=== PATIENT | female | born 1940 | race African-American/Black ===

== ENCOUNTER → 2016-11-22 | Outpatient (CLI) | payer OTHER ==
[~2016-11-22] MED LIST: ASPI-435 PO; BRIM0.1S OPB; DORZ2SOL20 OPB; LATA0.009 OPB; LOSA50TA6 PO; LPT/40 PO
--- NOTE | 2016-11-22 11:22 | DIAGNOSTIC IMAGING REPORT ---
CAROTID ARTERY ULTRASOUND CLINICAL HISTORY: History of stroke. COMPARISON STUDY: Carotid ultrasound May 11, 2013. TECHNIQUE: Real-time, grayscale, and color Doppler sonography of the carotid and vertebral arteries was performed. Images were viewed in the transverse and longitudinal planes. FINDINGS: There is moderate atherosclerotic plaque. Velocity measurements are listed below. COMMON CAROTID PEAK SYSTOLIC VELOCITY (CM/S): RIGHT 98 LEFT 82 ICA PEAK SYSTOLIC VELOCITY (CM/S): RIGHT 98 LEFT 67 The systolic ratios between the internal to common carotid arteries are normal. Antegrade flow is seen in the vertebral arteries. The external carotid arteries are patent. Blood pressure in the right arm measured 157/80. Blood pressure in the left arm measured 150/61. Incidental note was made of a 1.1 cm left lobe thyroid nodule. This does not meet criteria for biopsy. IMPRESSION: Moderate atherosclerotic plaque without evidence of a hemodynamically significant stenosis. Electronically signed by: Tremayne Boswell M.D. 11/22/2016 11:21 AM Dictated Date/Time: 11/22/2016 11:19 AM
== END | disposition home or self-care (01) ==
LOC: C.ULTR 09:30
PROVIDERS: ATTEND Family Medicine
DX: E11.9 Type 2 diabetes mellitus without complications (principal); Z87.59 Personal history of other complications of pregnancy, childbirth and the puerperium; I25.10 Atherosclerotic heart disease of native coronary artery without angina pectoris

== ENCOUNTER → 2016-11-23 | Outpatient (CLI) | payer OTHER ==
[2016-11-23 11:13] LABS: BASO % 0.1 %; BASO ABS # 0.01 K/uL (0-0.2); COMPLETE YES; EOS % 5.2 %; HEMATOCRIT 36.5 % (37-47); IG% 0.1 %; LYMPH % 28.1 %; LYMPH ABS # 1.96 K/uL (1.2-3.4); MEAN CELL VOLUME 102.8 fL (80-100); MEAN CORPUSCULAR HEMOGLOBIN 35.5 pg (25-34); MEAN CORPUSCULAR HGB CONC 34.5 g/dl (32-36); MEAN PLATELET VOLUME 10.2 fL (7.4-10.4); MONO % 11.3 %; NEUT % 55.2 %; PLATELET COUNT 232 K/uL (130-400); RED BLOOD COUNT 3.55 M/uL (4.2-5.4); WHITE BLOOD COUNT 6.97 K/uL (4.8-10.8)
[2016-11-23 12:19] LABS: ESTIMATED AVERAGE GLUCOSE 123 mg/dl; HA1C FLAG Normal (Normal)
[2016-11-23 12:29] LABS: ALT/SGPT 38 U/L (12-78); AST/SGOT 21 U/L (15-37); BLOOD UREA NITROGEN 12 mg/dl (7-18); BUN/CREATININE RATIO 12.1 (10-20); CALCIUM 8.8 mg/dl (8.5-10.1); CARBON DIOXIDE 26 mmol/L (21-32); CHLORIDE 105 mmol/L (98-107); CREATININE 0.95 mg/dl (0.60-1.20); GLUCOSE 100 mg/dl (70-99); POTASSIUM 3.8 mmol/L (3.5-5.1); SODIUM 139 mmol/L (136-145)
[2016-11-23 12:34] LABS: ALKALINE PHOSPHATASE 66 U/L (45-117); CHOLESTEROL 152 mg/dl (0-200); CHOLESTEROL/HDL RATIO 2.5; HDL CHOLESTEROL 60 mg/dl; LDL CHOLESTEROL CALCULATED 77 mg/dl; PHOSPHORUS 2.9 mg/dl (2.5-4.9); THYROID STIMULATING HORMONE 0.985 uIu/ml (0.300-4.500); TRIGLYCERIDES 77 mg/dl (0-150); VERY LOW DENSITY LIPOPROT CALC 15 mg/dl
[2016-11-26 11:38] LABS: C-REACTIVE PROT HIGHSEN 2.5 MG/L
--- NOTE | 2017-01-29 06:10 | CODING QUERY NO DIAGNOSIS ---
TREATMENT RENDERED WITHOUT A DIAGNOSIS To promote full compliance with coding requirements relating to patient care, physician participation is requested in all cases of paster hat lining uncertainty. Please assist us with providing a diagnosis/symptom for the test(s) below: A diagnosis/symptom was not documented on your Order. A valid diagnosis/symptom is required to bill all insurances. Please remember that we are unable to code a diagnosis of rule out, probable, possible, questionable, or suspected. Tests that require a diagnosis: DOS: 11/23/16 * CMP DIAGNOSIS: * CREATINE PHOSPHOKINASE DIAGNOSIS: * LIPID PROFILE FASTING DIAGNOSIS: * PHOSPHORUS DIAGNOSIS: * T4 FREE DIAGNOSIS: * TSH DIAGNOSIS: * URIC ACID DIAGNOSIS: * HEMOGLOBIN A1C DIAGNOSIS: * CBC W/ AUTO DIFF DIAGNOSIS: * VITAMIN B12 DIAGNOSIS: * VITAMIN D, 25-HYDROXY DIAGNOSIS: * C-REACT PROT HIGHSENS (CARDIO) DIANGOSIS: Provider Signature: Date: Thank you Razia Godinez [employer] Information Management Once completed, please kindly fax back to [phone] For questions please call [phone]
== END | disposition home or self-care (01) ==
LOC: C.LAB 10:26
PROVIDERS: ATTEND Family Medicine
DX: R73.09 Other abnormal glucose (principal)

== ENCOUNTER → 2017-02-25 | Outpatient (CLI) | payer OTHER ==
--- NOTE | 2017-02-27 08:26 | MAMMOGRAPHY REPORT ---
BILATERAL DIGITAL SCREENING MAMMOGRAM TOMOSYNTHESIS WITH CAD: 02/25/2017 CLINICAL HISTORY: Asymptomatic. Personal history of breast cancer. TECHNIQUE: Breast tomosynthesis in addition to standard 2D mammography was performed. Current study was also evaluated with a Computer Aided Detection (CAD) system. COMPARISON: Comparison is made to exams dated: 02/23/2016 mammogram, 02/21/2015 mammogram, 02/18/2014 mammogram, 02/17/2013 mammogram, 02/08/2012 mammogram, and 01/26/2011 mammogram - [facility]. BREAST COMPOSITION: The tissue of both breasts is heterogeneously dense, which may obscure small ma sses. FINDINGS: There is expected architectural distortion and benign coarse calcifications at the site of prior lumpectomy in the 12:00 posterior right breast. There are are stable grouped punctate microc alcifications in the lateral left breast, unchanged dating back to at least 2009, therefore likely b enign. No suspicious mass, architectural distortion or cluster of new, suspicious microcalcificatio ns is seen. IMPRESSION: ACR BI-RADS CATEGORY 1: NEGATIVE There is no mammographic evidence of malignancy. A 1 year screening mammogram is recommended. The p atient will receive written notification of the results. Approximately 10% of breast cancers are not detected with mammography. A negative mammographic repor t should not delay biopsy if a clinically suggestive mass is present. Rebeca Jung M.D. ay/:02/26/2017 18:03:00 Chemic Mangler: Mei REYNOLDS(Aminta)(Adi)(THERON), [facility] letter sent: Normal 1/2 BI-RADS Code: ACR BI-RADS Category 1: Negative
== END | disposition home or self-care (01) ==
LOC: C.MAMM 10:55
PROVIDERS: ATTEND Family Medicine
DX: Z12.31 Encounter for screening mammogram for malignant neoplasm of breast (principal); Z85.3 Personal history of malignant neoplasm of breast

== ENCOUNTER → 2017-03-08 | Outpatient (CLI) | payer OTHER ==
[2017-03-08 12:03] LABS: BASO % 0.6 %; BASO ABS # 0.04 K/uL (0-0.2); COMPLETE YES; EOS % 8.5 %; LYMPH % 32.5 %; LYMPH ABS # 2.11 K/uL (1.2-3.4); MEAN CELL VOLUME 103.5 fL (80-100); MEAN CORPUSCULAR HEMOGLOBIN 34.9 pg (25-34); MEAN CORPUSCULAR HGB CONC 33.7 g/dl (32-36); NEUT % 46.4 %; PLATELET COUNT 219 K/uL (130-400); RED BLOOD COUNT 3.67 M/uL (4.2-5.4); WHITE BLOOD COUNT 6.49 K/uL (4.8-10.8)
[2017-03-08 12:13] LABS: ALB/GLOB RATIO 1.2 (0.9-2); ALT/SGPT 30 U/L (12-78); AST/SGOT 19 U/L (15-37); BLOOD UREA NITROGEN 17 mg/dl (7-18); BUN/CREATININE RATIO 17.1 (10-20); CALCIUM 9.1 mg/dl (8.5-10.1); CARBON DIOXIDE 29 mmol/L (21-32); CHLORIDE 107 mmol/L (98-107); CHOLESTEROL 134 mg/dl (0-200); GLUCOSE 113 mg/dl (70-99); POTASSIUM 4.1 mmol/L (3.5-5.1); SODIUM 141 mmol/L (136-145); TRIGLYCERIDES 43 mg/dl (0-150); URIC ACID 5.7 mg/dl (2.6-7.2); VERY LOW DENSITY LIPOPROT CALC 9 mg/dl
[2017-03-08 12:22] LABS: ALKALINE PHOSPHATASE 67 U/L (45-117); CHOLESTEROL/HDL RATIO 2.5; HDL CHOLESTEROL 54 mg/dl; LDL CHOLESTEROL CALCULATED 71 mg/dl; TOTAL IRON BINDING CAPACITY 334 mcg/dl (250-450)
[2017-03-08 14:11] LABS: ESTIMATED AVERAGE GLUCOSE 126 mg/dl; HA1C FLAG Normal (Normal)
== END | disposition home or self-care (01) ==
LOC: C.LAB 10:52
PROVIDERS: ATTEND Family Medicine
DX: R73.09 Other abnormal glucose (principal); E55.9 Vitamin D deficiency, unspecified; D51.9 Vitamin B12 deficiency anemia, unspecified; E78.9 Disorder of lipoprotein metabolism, unspecified; R53.83 Other fatigue; I10 Essential (primary) hypertension

== ENCOUNTER → 2018-02-26 | Outpatient (CLI) | payer OTHER ==
--- NOTE | 2018-02-26 15:47 | MAMMOGRAPHY REPORT ---
BILATERAL DIGITAL SCREENING MAMMOGRAM TOMOSYNTHESIS WITH CAD: 02/26/2018 CLINICAL HISTORY: Asymptomatic. Personal history of breast cancer. TECHNIQUE: Breast tomosynthesis in addition to standard 2D mammography was performed. Current study was also evaluated with a Computer Aided Detection (CAD) system. COMPARISON: Comparison is made to exams dated: 02/25/2017 mammogram, 02/23/2016 mammogram, 02/21/2015 ma mmogram, 02/18/2014 mammogram, 02/17/2013 mammogram, and 02/08/2012 mammogram - [facility]ter. BREAST COMPOSITION: The tissue of both breasts is heterogeneously dense, which may obscure small mas ses. FINDINGS: No suspicious masses, calcifications, or areas of architectural distortion are noted in ei ther breast. There has been no significant interval change compared to prior exams. There are stable post surgical changes in the right upper outer quadrant from prior lumpectomy. Bilateral benign-heather earing calcifications are not significantly changed. IMPRESSION: ACR BI-RADS CATEGORY 2: BENIGN There is no mammographic evidence of malignancy. A 1 year screening mammogram is recommended. The pa tient will receive written notification of the results. Approximately 10% of breast cancers are not detected with mammography. A negative mammographic report should not delay biopsy if a clinically suggestive mass is present. Alina Davalos M.D. /:02/26/2018 12:04:45 Architectural Model Maker: Ruby Lugo [facility] letter sent: Normal 1/2 BI-RADS Code: ACR BI-RADS Category 2: Benign
== END | disposition home or self-care (01) ==
LOC: C.MAMM 11:26
PROVIDERS: ATTEND Family Medicine
DX: Z12.31 Encounter for screening mammogram for malignant neoplasm of breast (principal); Z85.3 Personal history of malignant neoplasm of breast

== ENCOUNTER → 2018-03-05 | Outpatient (CLI) | payer OTHER ==
[2018-03-05 13:01] LABS: BASO % 0.7 %; BASO ABS # 0.04 K/uL (0-0.2); EOS % 6.7 %; EOS ABS # 0.39 K/uL (0-0.5); HEMATOCRIT 36.2 % (37-47); HEMOGLOBIN 12.4 g/dL (12.0-16.0); IG# 0.01 K/uL (0.00-0.02); LYMPH % 34.2 %; LYMPH ABS # 1.99 K/uL (1.2-3.4); MEAN CELL VOLUME 100.8 fL (80-100); MEAN CORPUSCULAR HEMOGLOBIN 34.5 pg (25-34); MEAN CORPUSCULAR HGB CONC 34.3 g/dl (32-36); MEAN PLATELET VOLUME 9.9 fL (7.4-10.4); MONO % 10.7 %; MONO ABS # 0.62 K/uL (0.11-0.59); NEUT % 47.5 %; NEUT ABS # 2.77 K/uL (1.4-6.5); PLATELET COUNT 237 K/uL (130-400); RED CELL DISTRIBUTION WIDTH CV 12.4 % (11.5-14.5); RED CELL DISTRIBUTION WIDTH SD 45.8 fL (36.4-46.3); WHITE BLOOD COUNT 5.82 K/uL (4.8-10.8)
[2018-03-05 13:23] LABS: ALBUMIN 3.7 gm/dl (3.4-5.0); ALT/SGPT 31 U/L (12-78); AST/SGOT 19 U/L (15-37); BLOOD UREA NITROGEN 7 mg/dl (7-18); CALCIUM 8.8 mg/dl (8.5-10.1); CARBON DIOXIDE 29 mmol/L (21-32); CHOLESTEROL 132 mg/dl (0-200); CREATININE 0.95 mg/dl (0.60-1.20); GLUCOSE 94 mg/dl (70-99); POTASSIUM 3.3 mmol/L (3.5-5.1); SODIUM 140 mmol/L (136-145); URIC ACID 4.2 mg/dl (2.6-7.2)
[2018-03-05 13:32] LABS: ALKALINE PHOSPHATASE 76 U/L (45-117); LDL CHOLESTEROL CALCULATED 65 mg/dl; TOTAL PROTEIN 7.5 gm/dl (6.4-8.2); TRANSFERRIN 269 mg/dl (200-360)
== END | disposition home or self-care (01) ==
LOC: C.LAB 11:57
PROVIDERS: ATTEND Family Medicine
DX: R73.09 Other abnormal glucose (principal); E55.9 Vitamin D deficiency, unspecified; D51.9 Vitamin B12 deficiency anemia, unspecified; E78.9 Disorder of lipoprotein metabolism, unspecified; R53.83 Other fatigue

== ENCOUNTER → 2018-06-11 | Outpatient (CLI) | payer OTHER ==
[2018-06-11 12:59] LABS: BASO % 0.5 %; BASO ABS # 0.03 K/uL (0-0.2); EOS % 7.3 %; EOS ABS # 0.45 K/uL (0-0.5); HEMATOCRIT 37.4 % (37-47); HEMOGLOBIN 12.4 g/dL (12.0-16.0); LYMPH % 28.7 %; LYMPH ABS # 1.77 K/uL (1.2-3.4); MEAN CELL VOLUME 101.9 fL (80-100); MEAN CORPUSCULAR HEMOGLOBIN 33.8 pg (25-34); MEAN CORPUSCULAR HGB CONC 33.2 g/dl (32-36); MEAN PLATELET VOLUME 10.7 fL (7.4-10.4); MONO % 8.8 %; MONO ABS # 0.54 K/uL (0.11-0.59); NEUT % 54.7 %; NEUT ABS # 3.37 K/uL (1.4-6.5); PLATELET COUNT 224 K/uL (130-400); RED CELL DISTRIBUTION WIDTH CV 12.5 % (11.5-14.5); RED CELL DISTRIBUTION WIDTH SD 46.1 fL (36.4-46.3); WHITE BLOOD COUNT 6.16 K/uL (4.8-10.8)
[2018-06-11 13:49] LABS: ALBUMIN 3.8 gm/dl (3.4-5.0); ALKALINE PHOSPHATASE 66 U/L (45-117); ALT/SGPT 30 U/L (12-78); AST/SGOT 23 U/L (15-37); BLOOD UREA NITROGEN 13 mg/dl (7-18); CARBON DIOXIDE 26 mmol/L (21-32); CHOLESTEROL 125 mg/dl (0-200); CREATININE 0.96 mg/dl (0.60-1.20); GLUCOSE 113 mg/dl (70-99); LDL CHOLESTEROL CALCULATED 65 mg/dl; POTASSIUM 3.6 mmol/L (3.5-5.1); SODIUM 139 mmol/L (136-145); TOTAL PROTEIN 7.4 gm/dl (6.4-8.2); TRANSFERRIN 243 mg/dl (200-360); URIC ACID 4.8 mg/dl (2.6-7.2)
== END | disposition home or self-care (01) ==
LOC: C.LAB 10:44
PROVIDERS: ATTEND Family Medicine
DX: R73.03 Prediabetes (principal); E55.9 Vitamin D deficiency, unspecified; D51.9 Vitamin B12 deficiency anemia, unspecified; E78.9 Disorder of lipoprotein metabolism, unspecified; R53.83 Other fatigue

== ENCOUNTER 2022-12-19 06:15 | Observation (INO) ==
--- NOTE | 2022-12-05 12:36 | Anesthesiology Consultation ---
Date of Service December 05, 2022 Assessment & Plan (1) Encounter for pre-operative examination: Chart Review Chart Review: Acceptable Risk for Surgery and Patient NOT seen in Pre Admission Testing Consults Requested none History Surgery Operation Date: 12/19/22 07:00 Proposed Procedures p Bilateral Breast Mastectomy, Right [place] Lymph Node Biopsy - Andrew Del Valle DO, FACS Height/Weight Height: 5 ft 6 in Weight: 71.214 kg Allergies Allergy/AdvReac Type Severity Reaction Status Date / Time aspirin AdvReac Gastrointestinal Verified 12/05/22 09:42 Upset Medications Home Medications Medication Instructions Recorded Confirmed Last Taken atorvastatin 10 mg tablet 10 mg PO HS 07/31/21 12/05/22 07/30/21 brimonidine 0.1 % eye drops 1 drp OPB BID 07/31/21 12/05/22 07/31/21 (Alphagan P) latanoprost 0.005 % eye drops 1 drp OPB HS 07/31/21 12/05/22 07/30/21 omega 5-bpg-yhw-fish oil 1,000 mg 1 cap PO QAM 07/31/21 12/05/22 07/31/21 (120 mg-180 mg) capsule (Fish Oil) vit C,E,zinc,copper-vbbuo0h 250 1 cap PO QAM 07/31/21 12/05/22 07/31/21 mg-lutein 5 mg-zeaxanthin 1 mg capsule (Ocuvite Adult 50 Plus) vitamin E 670 mg (1,000 unit) 1,000 unit PO QAM 07/31/21 12/05/22 07/31/21 capsule dorzolamide 1 drp ophthalmic (eye) BID 10/25/21 12/05/22 Unknown cholecalciferol (vitamin D3) 50 50 mcg PO QAM 09/17/22 12/05/22 Unknown mcg (2,000 unit) capsule gabapentin 100 mg capsule 100 mg PO HS #90 caps 09/18/22 12/05/22 Unknown vitamin K2 100 mcg capsule 100 mcg PO QAM 10/04/22 12/05/22 Unknown multivitamin 1 tab PO QAM 11/13/22 12/05/22 Unknown vitamin A 3,000 mcg (10,000 unit) 10,000 unit PO QAM 11/13/22 12/05/22 Unknown capsule vitamin A-vitamin C-vit E-min 1 tab PO QAM 12/03/22 12/05/22 Unknown tablet clopidogrel 75 mg tablet 75 mg PO QAM 12/05/22 12/05/22 Unknown hydrochlorothiazide 25 mg tablet 12.5 mg PO QAM 12/05/22 12/05/22 Unknown losartan 100 mg tablet 100 mg PO QAM 12/05/22 12/05/22 Unknown Past Medical History Medical History Breast cancer, right breast 2001. surgery, chemo, radiation. Ductal carcinoma in situ (DCIS) of right breast Glaucoma History of CVA (cerebrovascular accident) 2014 - no residual HLD (hyperlipidemia) HTN (hypertension) Sinus bradycardia Past Family History Family History Aunt Breast cancer Paternal aunt Ovarian cancer Father , 68yo Prostate cancer Mother , 89yo Natural with unknown cause Hypertension Sister No problems noted. Brother No problems noted. Brother No problems noted. Daughter No problems noted. Daughter No problems noted. Daughter No problems noted. Denies family history of Diabetes Kidney disease Myocardial infarction Lung cancer Colorectal cancer Past Surgical History Surgical History H/O colonoscopy H/O left breast biopsy 10/31/2022 - negative for malignancy History of cataract surgery Bilateral History of lumpectomy of right breast 2001 in [place] History of right breast biopsy History of wisdom tooth extraction Social History Smoking Status: Former smoker Smoking cigarettes per day: 1 PPD x 30 yrs Do You Dip or Chew Tobacco: No Smoking End Date: quit Hx Alcohol Use: No Hx Substance Use: No substance use type: does not use Lab Results Anesthesia Preop Results Results Anesthesia Widget: WBC 6.00 K/ul (4.8-10.8) 11/07/22 Hgb 12.1 g/dl (12.0-16.0) 11/07/22 Hct 37.0 % (34.1-44.9) 11/07/22 Plt 206 K/uL (130-400) 11/07/22 Na 137 mmol/L (136-145) 11/07/22 K 3.7 mmol/L (3.5-5.1) 11/07/22 Cl 106 mmol/L (98-107) 11/07/22 CO2 21 mmol/L (21-32) 11/07/22 BUN 13 mg/dl (6-23) 11/07/22 Creat 0.87 mg/dl (0.6-1.2) 11/07/22 Glucose Level 81 mg/dl (70-99(Fasting)) 11/07/22 Testing Electrocardiogram Date: 11/15/22 SB with 1st degree AV block with occasional PACs, rate 52 bpm Chest X-Ray Date: 11/20/22 IMPRESSION: Atelectasis versus scarring versus trace pleural effusion on the right. Lungs are otherwise clear.
[~2022-12-19 06:15] MED LIST changes: -ASPI-435 PO; -BRIM0.1S OPB; -DORZ2SOL20 OPB; -LATA0.009 OPB; -LOSA50TA6 PO; -LPT/40 PO; +LR 15ML/HR IV SCH; +ceFAZolin 2000MG 2,000 MG/15 ML SYR IV SCH
[2022-12-19] MEDS ORDERED: fentaNYL citrate 100 MCG/2 ML VIAL ONE ×2 (08:39→10:56)
[2022-12-19] MEDS ORDERED: LIDOCAINE 2% MPF LOCAL 5 ML VIAL INFIL ONE (08:40)
[2022-12-19] MEDS ORDERED: PROPOFOL IV EMULSION 10 MG/ML 20 ML VIAL IV ONE (08:40)
[2022-12-19] MEDS ORDERED: BUPIVACAINE 0.5 % 5 MG/1 ML PF 10ML VIAL ONE (09:24)
[2022-12-19] MEDS ORDERED: ONDANSETRON INJ 2 MG/ML 2 ML VIAL IV PRN ×2 (09:54→15:57)
[2022-12-19] MEDS ORDERED: ePHEDrine sulfate 50 MG/ML AMP IV PRN (09:54)
[2022-12-19] MEDS ORDERED: ATROPINE SULFATE 0.1 MG/ML 10ML SYR IV PRN (09:54)
[2022-12-19] MEDS ORDERED: PROMETHAZINE HCL 6.25 MG in SODIUM CHLORIDE 0.9% 50 ML IV PRN (09:54)
--- NOTE | 2022-12-19 09:59 | History & Physical Bridge Note ---
Date of Service December 19, 2022 History & Physical Bridge Note I have examined the patient, reviewed the History & Physical and in the interval since the performance of the History & Physical I have noted the following changes of clinical significance: no changes noted sentinel node injection performed, lymphoscintigraphy confirmed uptake into right axilla.
[2022-12-19] MEDS ORDERED: ISOSULFAN BLUE 10 MG/ML VIAL 5 ML ONE (10:14)
[2022-12-19] MEDS ORDERED: BUPIVACAINE 0.5 % 5 MG/1 ML MPF 30ML VIAL ONE (10:14)
[2022-12-19] MEDS ORDERED: DEXAMETHASONE SOD INJ 4 MG/ML VIAL ONE ×2 (10:47)
[2022-12-19] MEDS ORDERED: ONDANSETRON INJ 2 MG/ML 2 ML VIAL ONE (10:47)
--- NOTE | 2022-12-19 10:52 | Nuclear Medicine Report ---
LYMPHOSCINTIGRAPHY HISTORY: Right breast cancer. RADIOTRACER: 25 mCi of lymphoseek. Study/Images: static anterior and lateral. PROCEDURE: Using standard sterile technique, four intradermal and one deep injections of radiotracer were placed in the right periareolar breast. The patient tolerated the procedure well without any complications. FINDINGS: Tracer localization was demonstrated at the injection site. In addition, focal tracer uptake in the r ight axilla was demonstrated and marked cutaneously. IMPRESSION: Lymphoscintigraphy was performed and a right axillary sentinel lymph node localized and marked for bi opsy. ACT 112: Negative or not required by law. Electronically signed by: Tc August M.D. 12/19/2022 10:51 AM
--- NOTE | 2022-12-19 12:51 | Operative Report ---
PG Post Operative Report Pre & Post Diagnosis Operation Date: 12/19/22 10:00 Pre-Op Diagnosis: Right Breast Ductal Carcinoma In Situ, high-grade with comedonecrosis, history of prior right breast cancer, left breast ADH Post-Op Diagnosis: Right Breast Ductal Carcinoma In Situ, high-grade with comedonecrosis, history of prior right breast cancer, left breast ADH I identified the patient and participated in the time-out.: Yes Procedure Operation Date: 12/19/22 10:00 Actual Procedures p Bilateral Breast Mastectomy, Right [place] Lymph Node Biopsy(Bilateral) - Andrew Del Valle DO, FACS Surgeon Andrew Del Valle DO, FACS Seed Cleaner Gin Ordoñez DO; Shelby Nelson Estimated Blood Loss 40 Findings Consistent with Post-Op Diagnosis Contralateral prophylactic left mastectomy performed, mammogram confirmed clips in specimen. Right simple mastectomy performed, mammogram confirmed clip in specimen. Right axillary sentinel lymph node biopsy performed, single lymph node measured 473 ex vivo, remainder of axilla silent. 10 Japanese RAVINDRA drains left bilaterally. Specimens Left breast mastectomy Right breast mastectomy Right axilla sentinel lymph node Drains 10 Japanese flat RAVINDRA drain in surgical bed bilaterally Anesthesia Type General Complications none Disposition Accompanied Patient To Recovery: No Disposition: Recovery Room Indications 82-year-old female with remote history of right breast cancer with recent diagnosis of high-grade DCIS with comedonecrosis of the right breast and left breast ADH. After discussion about her options, patient elected for bilateral mastectomy with right axillary sentinel lymph node biopsy. The risks of the procedure were discussed, all questions were answered, and the patient agreed to proceed with surgery as planned. Description of Procedure Patient had sentinel lymph node injection performed prior to the procedure, lymphoscintigraphy was performed and nuclear medicine confirmed uptake into the right axilla. The right axilla was examined prior to the procedure and confirmed uptake into the right axilla. The patient was properly identified, consented, and taken to the operating room where she was placed in the supine position. Bilateral pectoralis blocks were performed by anesthesia with Exparel prior to the procedure. General endotracheal anesthesia was induced. SCDs and a safety belt were placed. Preoperative antibiotics were administered. The patient's bilateral chest was prepped and draped in the standard sterile fashion. Surgical timeout was performed and all parties were in agreement that this was the correct patient and procedure to be performed and we continued as planned. We began by performing the prophylactic mastectomy on the left. A transversely oriented elliptical incision was made that encompassed the nipple-arreolar complex on the left. Flaps were raised to the clavicle superiorly, the sternum medially, and the rectus sheath inferiorly. Care was taken to leave a few millimeters of fat under the skin to maintain good perfusion to the flaps. The breast was then taken off the chest wall including the pectoralis fascia from medial to lateral. We then continued the dissection along the lateral border of the pectoralis muscle and along the axillary tail of Lozano, and this was amputated. The specimen was oriented and labeled left breast mastectomy. A postoperative mammogram was performed of the specimen and revealed a clip within the x-ray. The wound was irrigated and hemostasis achieved. A 10 Japanese RAVINDRA drain was placed in the surgical bed and exited inferior to the incision. This was secured in place with a 2-0 nylon suture. The skin was then closed with i nterrupted 3-0 Vicryl deep dermal sutures followed by running 4-0 Monocryl subcuticular suture. We then turned our attention to the right breast. Transversely oriented elliptical incision was made and encompassed the nipple areolar complex on the right. This was made to encompass the prior scar from her old right breast excision. Flaps were raised to the clavicle superiorly, the sternum medially and the rectus sheath inferiorly. Care was taken to leave a few millimeters of fat under the skin to maintain good perfusion of the flaps. During this portion of the procedure I turned my attention to the sentinel node. The clavipectoral fascia was incised. The gamma probe was used to localize the sentinel lymph node which read 473 ex vivo. The axilla was explored with the gamma probe and was silent. The breast was then taken off the chest wall including the pectoralis fascia from medial to lateral. We then continued the dissection along the lateral border of the pectoralis muscle and along the axillary tail of Lozano, and this was amputated. The specimen was oriented and labeled right breast mastectomy. Postoperative mammogram was performed of the specimen and revealed a clip within the x-ray. The wound was irrigated and hemostasis achieved. A 10 Japanese RAVINDRA drain was placed in the surgical bed and exited inferior to the incision. This was secured in place with a 2-0 nylon suture. The skin was then closed with interrupted 3-0 Vicryl deep dermal sutures followed by running 4-0 Monocryl subcuticular suture. Dermabond was placed over both incisions. Drain sponges were then placed. After the Dermabond had dried, fluffed gauze, ABDs, and an Venkat wrap were placed around the chest. The patient was extubated in the operating room and taken to the PACU where she recovered without apparent incident. All sponge, instrument and needle counts were correct at the conclusion of the procedure. The patient tolerated the procedure well. Dr. Ordoñez served as the speech therapy assistant on this case and performed the majority of the left mastectomy. Shelby Nelson, the physician's multimedia production assistant was present and scrubbed for the entirety of the procedure and she was critical in positioning the patient, prepping and draping, retraction and exposure, assistance in performance of the mastectomies, closure of the incisions, and placement of the dressings. I attest to the content of the Intraoperative Record and any orders documented therein. Any exceptions are noted below.
[2022-12-19] MEDS: fentaNYL citrate 100 MCG/2 ML VIAL IV PRN ×3 (13:08→13:18)
--- NOTE | 2022-12-19 14:18 | Anesthesiology Progress Note ---
Date of Service December 19, 2022 Anesthesia Post Procedure Vital Signs Vital Signs: Temp Pulse Pulse Resp BP Pulse Ox O2 Del Method 12/19/22 14:00 36.5 C 41 L 12 189/60 H 100 Nasal Cannula 12/19/22 13:10 47 L 17 110/79 98 Oxymask 12/19/22 13:50 40 L 17 185/64 H 100 Nasal Cannula 12/19/22 13:40 35 L 12 165/59 H 100 Nasal Cannula 12/19/22 13:30 39 L 14 111/55 L 100 Nasal Cannula 12/19/22 13:20 38 L 17 122/54 L 95 Oxymask 12/19/22 13:00 42 L 17 134/51 L 100 Oxymask 12/19/22 12:50 36.3 C L 44 L 19 198/69 H 99 Oxymask 12/19/22 06:51 36.9 C 61 16 203/80 H 99 Room Air O2 Flow Rate 12/19/22 14:00 2 12/19/22 13:10 10 12/19/22 13:50 2 12/19/22 13:40 2 12/19/22 13:30 4 12/19/22 13:20 4 12/19/22 13:00 10 12/19/22 12:50 10 12/19/22 06:51 Pain Intensity Bilateral Breast: Pain Intensity: 2 Transfer of Care Handoff Completed per policy Notes Mental Status: alert / awake / arousable Patient Amnestic to Procedure: Yes Nausea / Vomiting: adequately controlled Pain: adequately controlled Airway Patency, RR, SpO2: stable & adequate BP & HR: stable & adequate Hydration State: stable & adequate Anesthetic Complications: no major complications apparent Notes: patient maintaining baseline preop bradycardia with htn. she remains very close to her preoperative vital signs
[2022-12-19] MEDS ORDERED: MoRPHine SULFATE 2 MG/ML CARP IV PRN (15:57)
[2022-12-19] MEDS ORDERED: LACTATED RINGER'S 1,000 ML IV SCH (15:57)
[2022-12-19] MEDS ORDERED: oxyCODONE HCL IR 5 MG TAB (IMMEDIATE RELEASE) PO PRN (15:57)
[2022-12-19] MEDS ORDERED: MoRPHine SULFATE 4 MG/ML 1 ML CARP\\VIAL IV PRN (15:57)
--- NOTE | 2022-12-19 16:18 | Mammography Report ---
SPECIMEN RIGHT BREAST: 12/19/2022 CLINICAL HISTORY: Status post right mastectomy. COMPARISON: Comparison is made to exams dated: 08/30/2022 stereotactic biopsy, 08/30/2022 mammogram, 1 mammogram, 12/19/2022 specimen, 10/31/2022 ultrasound, and 10/31/2022 ultrasound biopsy - [facility]. Findings: A radiograph was performed of the right mastectomy specimen. The hourglass shaped biopsy c lip is noted within the mastectomy specimen. Postsurgical changes including dystrophic calcification s are also noted. Results were relayed to the operating room over the telephone. IMPRESSION: SPECIMEN The right mastectomy specimen contains the hourglass shaped biopsy clip. Alina Davalos M.D. /:12/19/2022 12:03:19 Gallery Or Museum Guide: OR Technologist, [facility]
--- NOTE | 2022-12-19 16:18 | Mammography Report ---
SPECIMEN LEFT BREAST: 12/19/2022 CLINICAL HISTORY: Status post left mastectomy. COMPARISON: Comparison is made to exams dated: 10/31/2022 ultrasound biopsy, 10/31/2022 ultrasound, and 10/31/2022 mammogram - [facility]. Findings: A radiograph was performed of the left mastectomy specimen. The ribbon shaped biopsy clip is present within the specimen. Results were relayed to the operating room over the telephone. IMPRESSION: SPECIMEN The left mastectomy specimen contains the ribbon shaped biopsy clip. Alina Davalos M.D. ah/:12/19/2022 12:01:48 Home Health Billing Specialist: OR Technologist, [facility]
[2022-12-19] MEDS: oxyCODONE HCL IR 5 MG TAB (IMMEDIATE RELEASE) PO PRN (16:51)
--- NOTE | 2022-12-19 17:49 | Hospitalist Consultation ---
Date of Consultation December 19, 2022 Assessment & Plan (1) S/P mastectomy, bilateral: -Perioperative abx, DVT PPX, pain control per the primary team -The patient is currently afebrile, stable on RA and Hypertensive at 180/65 but asymptomatic -Patient was able to eat and drink without issue post-op, will stop her IV fluids at this time -Her post-op hypertension is likely due to not taking her Losartan and HCTZ this am prior to arrival to the hospital -Will give her her Losartan now but hold her HCTZ until tomorrow to ensure her electrolytes and renal function are stable -Agree with AM CBC and BMP tomorrow morning -We will continue to follow, please reach out with any questions or concerns (2) Hypertension: -Will give Losartan now as she missed her am dose -Hold HCTZ until tomorrow after review of her labs -Continue to monitor (3) Acute right CHERRY PICKER OPERATOR stroke: -Stable -Plavix has been on hold for 1 week as per instructions from her PCP -Will need to restart once the primary team is comfortable with her bleeding risk (4) Sinus bradycardia: -Stable and asymptomatic -Was taking off of her beat kat previously -Continue to monitor (5) Hyperlipidemia: -Continue statin (6) Glaucoma: -Conitnue eye drops Plan The patient was discussed with Dr. Mendes at the time of the consult History of Present Illness Reason for Consultation: Hypertension, post-op medical management Requesting Physician: Andrew Del Valle DO, FACS Attending Physician: Dr. Reno Mendes History of Present Illness Vanessa is an 82 year old female with a PMH significant for right breast high-grade DCIS with comedonecrosis, ER positive, NV positive, asymptomatic sinu bradycardia, right CHERRY PICKER OPERATOR stroke, HTN, hyperlipidemia, RLS, glaucoma, and anemia who presented to the [facility] on 12/19/22 for Bilateral Breast Mastectomy, Right [place] Lymph Node Biopsy with Dr. Del Valle. Per the post-op report, there were no reported intraoperative complications, EBL was listed at 40 cc, and anesthesia was listed as "general". Per review of her vitals since arrival to the Hospital today she has been noted to be afebrile, hypertensive with her highest BP being 200/59 prior to the consult, and stable on RA. At the time of the exam the patient was resting comfortably in bed in no acute distress with her daughters standing bedside. She is doing well overall after her procedure, she is still in some pain but recently received oxycodone which is starting to help. Her BP at the time of my exam is 180/65, the patient currently denies headache, changes in vision, hearing, taste, and smell, SOB, chest pain other than at her surgical sites, abdominal pain, nausea, vomiting, dysuria, and LE swelling. She was able to eat dinner without issue prior to my arrival. She confirms that she did not take her AM doses of Losartan and HCTZ this morning. Please refer to Dr. Mendes's attetsation for any changes to the treatment plan Allergies Allergy/AdvReac Type Severity Reaction Status Date / Time aspirin AdvReac Gastrointestinal Verified 12/19/22 06:46 Upset Home Medications Medication Instructions Recorded Confirmed Type atorvastatin 10 mg tablet 10 mg PO HS 07/31/21 12/19/22 History brimonidine 0.1 % eye drops 1 drp OPB BID 07/31/21 12/19/22 History (Alphagan P) latanoprost 0.005 % eye drops 1 drp OPB HS 07/31/21 12/19/22 History omega 6-mjh-cgs-fish oil 1,000 mg 1 cap PO QAM 07/31/21 12/19/22 History (120 mg-180 mg) capsule (Fish Oil) vit C,E,zinc,copper-jkzzt0z 250 1 cap PO QAM 07/31/21 12/19/22 History mg-lutein 5 mg-zeaxanthin 1 mg capsule (Ocuvite Adult 50 Plus) vitamin E 670 mg (1,000 unit) 1,000 unit PO QAM 07/31/21 12/19/22 History capsule dorzolamide 1 drp ophthalmic (eye) BID 10/25/21 12/19/22 History cholecalciferol (vitamin D3) 50 50 mcg PO QAM 09/17/22 12/19/22 History mcg (2,000 unit) capsule gabapentin 100 mg capsule 100 mg PO HS #90 caps 09/18/22 12/19/22 Rx vitamin K2 100 mcg capsule 100 mcg PO QAM 10/04/22 12/19/22 History multivitamin 1 tab PO QAM 11/13/22 12/19/22 History vitamin A 3,000 mcg (10,000 unit) 10,000 unit PO QAM 11/13/22 12/19/22 History capsule vitamin A-vitamin C-vit E-min 1 tab PO QAM 12/03/22 12/19/22 History tablet clopidogrel 75 mg tablet 75 mg PO QAM 12/05/22 12/19/22 History hydrochlorothiazide 25 mg tablet 12.5 mg PO QAM 12/05/22 12/19/22 History losartan 100 mg tablet 100 mg PO QAM 12/05/22 12/19/22 History Patient History Medical History Breast cancer, right breast 2001. surgery, chemo, radiation. Ductal carcinoma in situ (DCIS) of right breast Glaucoma History of CVA (cerebrovascular accident) 2014 - no residual HLD (hyperlipidemia) HTN (hypertension) Sinus bradycardia Surgical History H/O colonoscopy H/O left breast biopsy 10/31/2022 - negative for malignancy History of cataract surgery Bilateral History of lumpectomy of right breast 2001 in [place] History of right breast biopsy History of wisdom tooth extraction Family History Aunt Breast cancer Paternal aunt Ovarian cancer Father , 68yo Prostate cancer Mother , 89yo Natural with unknown cause Hypertension Sister No problems noted. Brother No problems noted. Brother No problems noted. Daughter No problems noted. Daughter No problems noted. Daughter No problems noted. Denies family history of Diabetes Kidney disease Myocardial infarction Lung cancer Colorectal cancer Social History Smoking Status: Former smoker Tobacco Type: Cigarettes Age Quit Using Tobacco: 48; packs per day: 1; Cigarettes Per Day: 1 PPD x 30 yrs; Smoking End Date: quit ; Second Hand Exposure: No; Do You Dip or Chew Tobacco: No; Tobacco Cessation Education Requested by Patient: No Hx Alcohol Use: No Hx Substance Use: No Preferred Language: Japanese Communication Ability: Effective Visual Impairment: Limited Hearing Ability: Normal Level Vial Inspector Required: No Beliefs That Will Affect Care: None and Jew Jew Beliefs: Zoroastrian marital status: / Current Living Situation: Alone current occupational status: retired How many Children do You have: 3 Feels Safe at Home: Yes Safety Concerns: Feels Safe At This Time Childhood Exposure to Second-Hand Smoke: No Diet Comment: only meat consumed is chicken and fish caffeine: Yes (1 cup aday) during the past year weight has: remained stable Dental Care, Regularly: Yes Physical Activity Frequency: Does not Exercise Seatbelt Use: always Sunscreen Use: No Assistive Devices: Denture - Upper and Glasses Review of Systems Review of Systems: Denies current fever, chills, headache, changes in vision, hearing, taste, and smell, new chest pain, SOB, cough, abdominal pain, nausea, vomiting, diarrhea, hematemesis, melena, dysuria, hematuria, and recent falls. All systems have been reviewed and are otherwise negative. Physical Exam Physical Exam: Physical Exam: General: In no acute distress, stated age, well-nourished, good hygiene, non- toxic appearing HEENT: Normocephalic, atraumatic, no scleral icterus, pupils around round, symmetrical, and reactive to light, moist mucus membranes, trachea midline, no thyromegaly Chest/Pulm: No respiratory distress, symmetrical chest expansion, clear breath sounds throughout Cardiac: Bradycardic rate, regular rhythm,, no murmurs noted Abdomen: Negative for ascites and bruising, normoactive bowel sounds, soft, non-tender to palpation throughout Musculoskeletal: Patient with wraps on the current surgical sites and drain in place, no signs of drainage on inspection of the bandages, Extremities: Radial, dorsalis pedis, and posterior tibial pulses are intact and symmetrical, no edema noted in the BL LE's Skin: Warm, dry, no rashes , lesions, or scars noted Neuro: Alert and oriented to person, place, month, year, and president, no focal defects, CN II-XII tested and intact, no tremors noted Psych: No acute distress, calm and cooperative during the exam Results & Data Results & Data ([facility]) Vital Signs (Past 12 Hours) Vital Signs Temp Pulse Pulse Resp BP Pulse Ox O2 Del Method 12/19/22 16:27 53 L 16 180/65 H 96 Room Air 12/19/22 15:57 36.7 C 47 L 16 191/47 H 98 Room Air 12/19/22 15:30 40 L 18 176/58 H 98 Room Air 12/19/22 15:00 41 L 14 184/54 H 97 Room Air 12/19/22 14:45 42 L 11 L 177/57 H 97 Room Air 12/19/22 14:30 41 L 16 197/54 H 100 Nasal Cannula 12/19/22 14:15 48 L 19 200/59 H 100 Nasal Cannula 12/19/22 14:00 36.5 C 41 L 12 189/60 H 100 Nasal Cannula 12/19/22 13:10 47 L 17 110/79 98 Oxymask 12/19/22 13:50 40 L 17 185/64 H 100 Nasal Cannula 12/19/22 13:40 35 L 12 165/59 H 100 Nasal Cannula 12/19/22 13:30 39 L 14 111/55 L 100 Nasal Cannula 12/19/22 13:20 38 L 17 122/54 L 95 Oxymask 12/19/22 13:00 42 L 17 134/51 L 100 Oxymask 12/19/22 12:50 36.3 C L 44 L 19 198/69 H 99 Oxymask 12/19/22 06:51 36.9 C 61 16 203/80 H 99 Room Air O2 Flow Rate 12/19/22 16:27 12/19/22 15:57 12/19/22 15:30 12/19/22 15:00 12/19/22 14:45 12/19/22 14:30 2 12/19/22 14:15 2 12/19/22 14:00 2 12/19/22 13:10 10 12/19/22 13:50 2 12/19/22 13:40 2 12/19/22 13:30 4 12/19/22 13:20 4 12/19/22 13:00 10 12/19/22 12:50 10 12/19/22 06:51 Diagnostic Findings [place] Node [facility] Nuclear Med 12/19/22 08:00 LYMPHOSCINTIGRAPHY HISTORY: Right breast cancer. RADIOTRACER: 25 mCi of lymphoseek. Study/Images: static anterior and lateral. PROCEDURE: Using standard sterile technique, four intradermal and one deep injections of radiotracer were placed in the right periareolar breast. The patient tolerated the procedure well without any complications. FINDINGS: Tracer localization was demonstrated at the injection site. In addition, focal tracer uptake in the right axilla was demonstrated and marked cutaneously. IMPRESSION: Lymphoscintigraphy was performed and a right axillary sentinel lymph node localized and marked for biopsy. ACT 112: Negative or not required by law. Electronically signed by: Tc August M.D. 12/19/2022 10:51 AM ECG Additional Comments: No ECG available at the time of the consult PG Care Time/CCT Total # of Minutes Spent Total Time Spent with Patient: Total time spent is greater than 50% in coordination of care (as documented) at patient's floor/unit and/or counseling patient: Coding Level of Care Code Established Pt INP/OBS CONSULT LVL 4, 60 MIN Patient Type Established History Comprehensive Exam Comprehensive Medical Decision Making High Complexity Diagnoses S/P mastectomy, bilateral Z90.13 Hypertension I10 Hypertension type: primary hypertension Acute right CHERRY PICKER OPERATOR stroke I63.531 Sinus bradycardia R00.1 Hyperlipidemia E78.5 Glaucoma H40.9 (2) Hypertension Hypertension type: primary hypertension Qualified Code(s): I10 - Essential (primary) hypertension
[2022-12-19] MEDS: LOSARTAN POTASSIUM 50 MG TAB PO SCH (18:28)
[2022-12-19] MEDS ORDERED: ACETAMINOPHEN 325 MG TAB PO PRN (19:53)
[2022-12-19] MEDS ORDERED: LATANOPROST 0.005% OP SOLN 2.5 ML BTL OPB SCH (21:00)
[2022-12-19] MEDS ORDERED: ATORVASTATIN 10 MG TAB PO SCH (21:00)
[2022-12-19] MEDS ORDERED: GABAPENTIN 100 MG CAP PO SCH (21:00)
[2022-12-19] MEDS: DORZOLAMIDE HCL 2% OPH SOLN 10 ML BTL OP SCH (21:59)
[2022-12-20 07:00] LABS: BUN Creatinine Ratio 17.3 (10-20); Calcium 9.1 mg/dl (8.5-10.1); Creatinine Clr Calc Pharmacy 38.4 ml/min; Est GFR (African American) 57.5 ml/min; Est GFR (Non-African American) 49.6 ml/min; Potassium 4.2 mmol/L (3.5-5.1)
[2022-12-20 07:06] LABS: Basophils # (auto) 0.02 K/uL (0-0.2); Basophils % (auto) 0.2 %; Eosinophils # (auto) 0.03 K/uL (0-0.50); Eosinophils % (auto) 0.3 %; Hematocrit (blood only) 31.6 % (37.0-47.0); Hemoglobin 10.5 g/dl (12.0-16.0); Immature Granulocytes # (auto) 0.02 K/uL (0.01-0.20); Immature Granulocytes % (auto) 0.2 %; Lymphocytes % (auto) 17.5 %; Mean Corpuscular Hemoglobin 34.4 pg (25.0-34.0); Mean Corpuscular Hgb Conc 33.2 g/dL (32.0-36.0); Mean Corpuscular Volume 103.6 fL (80.0-100.0); Mean Platelet Volume 10.6 fL (9.4-12.4); Monocytes % (auto) 14.7 %; Neutrophils # (auto) 7.29 K/uL (1.40-6.50); Neutrophils % (auto) 67.1 %; Platelet Count 166 K/uL (130-400); RDW Coefficient of Variation 12.4 % (11.5-14.5); RDW Standard Deviation 46.6 fL (36.4-46.3); Red Blood Count 3.05 M/uL (4.20-5.40); White Blood Count 10.86 K/ul (4.8-10.8)
--- NOTE | 2022-12-20 07:56 | Surgery Progress Note ---
Date of Service December 20, 2022 Assessment & Plan (1) S/P mastectomy, bilateral: Plan: POD#1 bilateral breast mastectomy with R sentinel lymph node biopsy WBC 10.8, Hbg 10.5. This AM's vitals are stable Incisions are c/d/i with skin glue overtop with gauze/abd dressings + BIBI wrap Bilateral RAVINDRA drains are seroang. (R- 50cc, L- 65cc) some redness appreciated under R armpit region, will monitor for now Regular diet, continue current pain regimen RN's to provide pt with RAVINDRA drain teaching Appreciate medicine service follow along with us for HR/HTN mngmt Likely discharge to home later today pending ongoing stability and f/u with Dr. Del Valle in clinic within 1-2 weeks Admission and Anticipated Discharge Date Admission Date: December 19, 2022 Supervising Physician Co-Signing Physician Notes Patient seen and examined, labs reviewed, agree with above. POD #1 bilateral mastectomy with right axillary sentinel lymph node biopsy. Little sore in her axilla, otherwise minimal pain. On exam afebrile stable vitals, stable bradycardia and normotensive. Flaps viable, no seroma/hematoma. Serosanguineous RAVINDRA drains. Will discharge to home, follow-up in clinic when drains less than 30 cc per drain per 24-hour period. Drain care by nurses. Subjective Patient is feeling well. Has some incisional pain, but is well managed with pain medication. Tolerating a diet. Denies any CP/SOB, JALLOH's/dizziness/lightheadedness. Physical Exam Physical Exam: awake/alert. no distress Respiratory: normal respiratory effort Chest (Breasts): Additional Comments: bilateral mastectomy incisions are c/d/i. R RAVINDRA 50cc documented, L RAVINDRA 65cc documented-both serosang. some redness under R armpit region that is a little tender to palpation Results & Data ([facility]) Vital Signs (Past 12 Hours) Vital Signs Temp Pulse Pulse Pulse Resp BP BP 12/20/22 07:14 36.6 C 99 H 18 141/69 H 12/20/22 04:00 36.7 C 48 L 18 151/70 H 12/19/22 19:59 36.7 C 47 L 19 152/62 H 12/19/22 22:01 36.7 C 48 L 18 145/55 H 12/19/22 23:26 45 L 12/19/22 22:24 36.7 C 48 L 18 145/55 H Pulse Ox O2 Del Method 12/20/22 07:14 97 Room Air 12/20/22 04:00 99 Room Air 12/19/22 19:59 99 Room Air 12/19/22 22:01 97 Room Air 12/19/22 23:26 12/19/22 22:24 97 Room Air PG Care Time/CCT Total # of Minutes Spent Total Time Spent with Patient: Total time spent is greater than 50% in coordination of care (as documented) at patient's floor/unit and/or counseling patient: Coding Level of Care Code 54691 Post Operative Follow-Up Diagnoses S/P mastectomy, bilateral Z90.13
[2022-12-20] MEDS: DORZOLAMIDE HCL 2% OPH SOLN 10 ML BTL OP SCH (08:26)
[2022-12-20] MEDS: oxyCODONE HCL IR 5 MG TAB (IMMEDIATE RELEASE) PO PRN (08:28)
[2022-12-20] MEDS ORDERED: LOSARTAN POTASSIUM 50 MG TAB PO SCH (09:00)
[2022-12-20] MEDS: LOSARTAN POTASSIUM 50 MG TAB PO SCH (09:00)
[2022-12-20] MEDS ORDERED: hydroCHLOROthiazide 25 MG TAB PO SCH (09:00)
--- NOTE | 2022-12-20 14:19 | Hospitalist Progress Note ---
Date of Service December 20, 2022 Assessment & Plan (1) S/P mastectomy, bilateral: Plan: DOing well post op continue management as per Surgery (2) Hypertension: Plan: BPs mildly elevated but better than previous continue home HCTZ and losartan and f/u with PCP renal function normal (3) Acute right SLUNK SKINNER stroke: Plan: -Stable -Plavix has been on hold for 1 week as per instructions from her PCP and can restart tomorrow -continue statin and consider high intensity statin unless contraindication- defer to PCP (4) Sinus bradycardia: Plan: -Stable and asymptomatic -Was taken off of her beta kat previously (5) Hyperlipidemia: Plan: -Continue statin (6) Glaucoma: Plan: -Continue eye drops (7) Anemia: Plan: hgb 10.5 down from baseline 12 preop macrocytic B12 and folate normal in 03/2022 could be myelodysplasia? Consider outpt Heme referral if desired f/u with PCP who is managing (8) Ductal carcinoma in situ (DCIS) of right breast: Plan: follow up with Rad Onc and Oncology after discharge (9) Restless legs syndrome: Plan: continue gabapentin Plan Dispo-medically stable for discharge to home from my standpoint Admission and Anticipated Discharge Date Admission Date: December 19, 2022 Subjective Pt has some pain in chest surgical sites but otherwise doing well. Eating and drinking, no other concerns. Is pleased wit her BP readings. Tele with SB 40-50s Review of Systems Review of Systems: All systems reviewed & are unremarkable except as noted in HPI & below Physical Exam Constitutional: WD/WN, vitals as above Eyes: + anicteric sclerae Respiratory: normal respiratory effort, lungs clear to auscultation Cardiovascular: RRR, no murmur, no edema Chest (Breasts): Chest: + abnormal inspection of chest (dressings,RAVINDRA drains,BIBI wrap in place c/d/i) Gastrointestinal (Abdomen): normal bowel sounds, soft, nontender, no hepatosplenomegaly Skin: no rashes, warm and dry Neurologic: PERRL, EOMI, accommodation nl, no face palsy, no dysarthria Psychiatric: A+Ox3, euthymic affect Results & Data Results & Data ([facility]) Vital Signs (Past 12 Hours) Vital Signs Temp Pulse Pulse Pulse Resp BP BP 12/20/22 13:49 36.8 C 99 H 50 L 16 151/70 H 112/69 12/20/22 07:15 38 L 12/20/22 11:04 36.8 C 50 L 16 112/69 12/20/22 07:14 36.6 C 99 H 18 141/69 H 12/20/22 04:00 36.7 C 48 L 18 151/70 H Pulse Ox O2 Del Method 12/20/22 13:49 97 12/20/22 07:15 12/20/22 11:04 97 Room Air 12/20/22 07:14 97 Room Air 12/20/22 04:00 99 Room Air Laboratory Results CBCm and BMP reviewed PG Care Time/CCT Total # of Minutes Spent Total Time Spent with Patient: Total time spent is greater than 50% in coordination of care (as documented) at patient's floor/unit and/or counseling patient: Coding Level of Care Code 90271 SUB INP/OBS CARE 2/35MIN Diagnoses S/P mastectomy, bilateral Z90.13 Hypertension I10 Hypertension type: primary hypertension Acute right SLUNK SKINNER stroke I63.531 Sinus bradycardia R00.1 Hyperlipidemia E78.5 Glaucoma H40.9 Anemia D64.9 Ductal carcinoma in situ (DCIS) of right breast D05.11 Restless legs syndrome G25.81 (2) Hypertension Hypertension type: primary hypertension Qualified Code(s): I10 - Essential (primary) hypertension
--- NOTE | 2022-12-21 08:50 | Discharge Summary ---
Date of Service December 20, 2022 Principal Diagnosis s/p bilateral mastectomy HTN Discharge Exam awake/alert. no distress Respiratory no respiratory distress Cardiovascular Rate/Rhythm: regular rate Gastrointestinal (Abdomen) dressings,RAVINDRA drains,BIBI wrap in place c/d/i Discharge Data Allergies Allergy/AdvReac Type Severity Reaction Status Date / Time aspirin AdvReac Gastrointestinal Verified 12/19/22 06:46 Upset Consultations 12/19/22 15:57 Consult Hospitalist Routine Procedures Performed Operation Date: 12/19/22 10:00 Actual Procedures p Bilateral Breast Mastectomy, Right [place] Lymph Node Biopsy(Bilateral) - Andrew Del Valle, DO, FACS Ordered Studies 12/19/22 09:14 US - OR guided needle placemen Routine Hospital Course (1) S/P mastectomy, bilateral: This is an 82yF with a PMH of right sided breast cancer who presented to the [facility] on 12/19/22 for a scheduled bilateral breast mastectomy with right sentinel lymph node biopsy. This was performed by Dr. Del Valle. The patient tolerated the procedure well, see op note for full details. The patient recovered in the PACU and was transferred to the surgical nursing floor in stable condition. Post operatively the patient's diet was advanced as tolerated and pain remained controlled on prn medication. The hospitalists were consulted for their assistance with medical management with history of HTN. On POD#1 patient's incisions were c/d/i, BIBI wrap and dressings in place, RAVINDRA drain x2 serosang. She was tolerating a diet. Pain controlled. Hospitalists and surgical teams cleared the patient for home. She was instructed to follow up in clinic within 1-2 weeks. Total Time Total Time Spent Total Time Spent (In Minutes): 15 Discharge Plan Discharge Items Patient Disposition: Home - Self-Care Reason For Visit: S/P BILATERAL MASTECTOMY Discharge Diagnosis: bilateral breast mastectomy Activity: Per Instructions section Lifting: No more than 10 pounds Bathing Comment: keep incisions dry; may sponge bath otherwise Exercise/Sports: Wait until after follow-up appointment Driving/Machine Use: no driving until cleared by the surgeon Non-emergency contact: Surgeon Call non-emergency contact if: you have any medication questions, your symptoms worsen, your pain is not controlled, you have a fever, your temperature is above 101.5, your wound has increased redness, your wound has increased drainage and your wound pain has increased Follow-up/Referrals: Andrew Del Valle DO, FACS [Physician] - (Call to schedule follow up in clinic within 1-2 weeks ) Maxim Grant MD [Primary Care Provider] - Diet: Regular Addtl Attending Provider Instructions: Please care for your surgical drains as you have been instructed prior to discharge. Empty drain 2-3x/daily and record; once they are under 30cc/24hours for two days in a row you may call the office for removal Please continue to wear BIBI bandage or a compressive bra, can cover incisions with fluffed gauze/ABD pads underneath You may resume your Plavix on 12/21/22 Pending Studies at Discharge: Yes Studies:: surgical pathology Stand-Alone Forms: My [facility] Medications and DC Order Prescriptions: New oxycodone-acetaminophen [Percocet] 5-325 mg tablet 1 - 2 tab PO .q4-6h PRN (Reason: pain, for initial therapy, max 6 tabs per day) Qty: 15 0RF Continued multivitamin Tablet 1 tab PO QAM gabapentin 100 mg capsule 100 mg PO HS Qty: 90 3RF cholecalciferol (vitamin D3) 50 mcg (2,000 unit) capsule 50 mcg PO QAM vitamin A-vitamin C-vit E-min Tablet 1 tab PO QAM dorzolamide 1 drp ophthalmic (eye) BID vitamin K2 100 mcg capsule 100 mcg PO QAM clopidogrel 75 mg tablet 75 mg PO QAM hydrochlorothiazide 25 mg tablet 12.5 mg PO QAM losartan 100 mg tablet 100 mg PO QAM latanoprost 0.005 % drops 1 drp OPB HS vitamin E 1,000 unit Capsule 1,000 unit PO QAM atorvastatin 10 mg tablet 10 mg PO HS Alphagan P 0.1 % drops 1 drp OPB BID omega 9-rrx-udu-fish oil [Fish Oil] 1,000 mg (120 mg-180 mg) Capsule 1 cap PO QAM Ocuvite Adult 50 Plus 250-5-1 mg Capsule 1 cap PO QAM vitamin A 10,000 unit capsule 10,000 unit PO QAM Discharge Orders: Discharge Order (Routine); Ordered 12/20/22 Ordered By: Shelby Nelson Admission Data Admit Date/Time: 12/19/22 15:02 Attending Provider: Andrew Del Valle Admit Provider: Andrew Del Valle Primary Care Provider: Maxim Grant Other Providers: Carlos Robles ; Estela Valdovinos ; Reno Leong ; Fredis Mckeon ; Leroy Sherman ; Dimitris Feliz ; Jonathan Valle ; Jackie Bailey ; Cinthya Huerta ; Tien Singletary ; Bryce Menjivar ; Carol Renteria ; Reji Kowalski ; Uriel Deras ; Judie Del Valle ; Georgia Ann ; Lesli Lorenzo ; Murphy Madden ; Bharat Howell ; Kelsi Green ; Estela Foy ; Melissa George ; Adonay Peterson ; Reno Mendes ; Lelia Swan ; Deangelo Riggs ; Lucho Clayton ; Mildred Arrington ; Max Manley ; Diane Pascual ; Gurmeet Blackman ; Michelle Apple ; Kendrick Encinas ; Barry Jama ; Katia Nelson ; Thaddeus Norman ; Camelia Lay Other Interventions: Discharge Summary Assessment (RN) Last Done: 12/20/22 13:49 Coding Level of Care Code HOSP INP/OBS DISCH 30 MIN/LESS Diagnoses S/P mastectomy, bilateral Z90.13
== END 2022-12-20 14:55 | disposition home or self-care (01) ==
LOC: ASU 06:15 → 2N 06:15